=== PATIENT | female | born 1990 | race Caucasian/White ===

== ENCOUNTER 2021-08-26 18:45 | Emergency (ER) | payer OTHER, SELFPAY ==
[2021-08-26 18:56] VITALS: BP 144/83; PULSE 114; RESP 16; TEMP 37.2; O2SAT 98
[2021-08-26] MEDS: KETOROLAC (*BKC) 60 MG/2 ML VIAL IM (19:45)
--- NOTE | 2021-08-26 19:58 | ED.GENADULT ---
HPI - General Adult General Chief complaint: Back Pain/Injury Stated complaint: low back pain Source: patient and family Mode of arrival: ambulatory Limitations: no limitations History of Present Illness HPI narrative: Patient is a 30-year-old female presents to the [facility] via POV for evaluation of right-sided low back pain that began today. She reports her pain is constant and achy/sharp in nature. Pain radiates down right buttocks and back of right leg. Ibuprofen provides minimal relief. Any movement worsens pain. Denies injury. Related Data Allergies Allergy/AdvReac Type Severity Reaction Status Date / Time No Known Allergies Allergy Verified 08/26/21 20:15 Review of Systems Review of Systems: Pertinent negatives fever, chills, sweats, change in appetite, poor p.o. intake, malaise, headache, stiffness, abdominal pain, nausea, vomiting, diarrhea, constipation, dysuria, urinary frequency/urgency, hematuria, urinary retention, flank pain, bladder/bowel incontinence, skin color changes, deformity, numbness, tingling, loss of sensation, decreased ROM, difficulty with ambulation/coordination, chest pain, heart palpitations/murmurs, and sob. PMFSH Comments I have reviewed and agree with the patient's past medical, surgical, social, and family hx as documented by the RN. There is no relevant family history pertinent to the presenting complaint. Exam Narrative: GENERAL: Well-appearing, well-nourished, and in no acute distress. HEAD: Normocephalic, atraumatic. NECK: Supple. No lymphadenopathy or nuchal rigidity. No evidence of pain, decreased ROM, or deformity. CHEST: Lung sounds are clear to auscultation in bilateral lung vanessa. No respiratory distress. HEART: Tachycardia with a rate of 114. Regular rhythm. No murmur heard. Normal peripheral pulses. ABDOMEN: Soft, nontender, nondistended, normal active bowel sounds in all quadrants. No guarding. No rebound tenderness. No pulsatile or palpable abdominal mass(es). No CVAT EXTREMITIES: Normal range of motion. No edema. BACK: Full ROM. No evidence of deformity, spasm, mass, spinal tenderness, or swelling. Unable to perform SLR test secondary to pain. Slowed gait. Patient ambulates hunched over. Moderate right-sided low back and buttock pain appreciated upon palpation. SKIN: Warm, dry, no rash. No skin color changes. Excellent turgor. NEURO: No focal deficits. Alert and oriented x3. Course Vital Signs Vital signs: Vital Signs Temperature 98.9 F 08/26/21 18:56 Pulse Rate 114 H 08/26/21 18:56 Respiratory Rate 16 08/26/21 18:56 Blood Pressure 144/83 H 08/26/21 18:56 Pulse Oximetry 98 08/26/21 18:56 Temperature 98.9 F 08/26/21 18:56 Pulse Rate 114 H 08/26/21 18:56 Respiratory Rate 16 08/26/21 18:56 Blood Pressure 144/83 H 08/26/21 18:56 Pulse Oximetry 98 08/26/21 18:56 Due to an elevated blood pressure, I had a detailed discussion with the patient and/or guardian regarding the need for follow-up with their primary care provider within the next 3-4 days. Patient verbalized understanding and agreed. Medical Decision Making Differential Diagnosis Differential Diagnosis: Spinal stenosis, radiculopathy/sciatica,cauda equina syndrome, sacroiliac pathology, fracture, strain, spasm, UTI, pyelonephritis, nephrolithiasis Medical Records Medical records reviewed: Yes I reviewed the external patient's medical records. Vital Signs Vital Signs: Vital Signs Temperature 98.9 F 08/26/21 18:56 Pulse Rate 114 H 08/26/21 18:56 Respiratory Rate 16 08/26/21 18:56 Blood Pressure 144/83 H 08/26/21 18:56 Pulse Oximetry 98 08/26/21 18:56 Temperature 98.9 F 08/26/21 18:56 Pulse Rate 114 H 08/26/21 18:56 Respiratory Rate 16 08/26/21 18:56 Blood Pressure 144/83 H 08/26/21 18:56 Pulse Oximetry 98 08/26/21 18:56 Critical Care Time Critical Care Time Critical Care Time: No Discharge Plan Discharge Clinical Impres
== END 2021-08-26 20:10 | disposition home or self-care (01) ==
PROVIDERS: Emergency Provider Nurse Practitioner Family
DX: M54.41 Lumbago with sciatica, right side (principal)
CPT/HCPCS: 96372; 99213; G0463; J1885